=== PATIENT | male | born 1975 | race Two or more races ===

== ENCOUNTER 2024-12-14 18:39 | Inpatient (IN) | payer OTHER ==
[~2024-12-14] VITALS: Ht 167.6 cm; Wt 72.6 kg
--- NOTE | 2024-12-14 18:52 | NUR ---
PTE TRASLADADO EN AMBULANCIA INTUBADO PRESENTANDO CONVULSIONES AL MOMENTO DE SER ENCONTRADO EN UN PARKING POR PARAMEDICOS.
[2024-12-14] MEDS ORDERED: PROPOFOL 100 ML IV SCH (19:30)
[2024-12-14 19:58] LABS: BASO % 0.9 % (0.1-1.2); EOS # 0.25 (0.04-0.54); EOS % 2.3 % (0.7-7.0); LYMPH # 1.55 (1.18-3.74); LYMPH % 14.1 % (19.3-53.1); MEAN PLATELET VOLUME 9.50 fl (9.4-12.4); MONO # 0.49 (0.24-0.82); MONO % 4.5 % (4.7-12.5); NEUT # 8.51 (1.56-6.13); NEUT % 77.3 % (34.0-71.1); RED CELL DISTRIBUTION WIDTH 18.3 % (11.6-14.4)
[2024-12-14 20:30] LABS: INR 1.03
[2024-12-14 20:36] LABS: ALT/SGPT 68.0 U/L (12-78); AST/SGOT 62.0 U/L (15-37); BILIRUBIN TOTAL 0.42 mg/dL (0.3-1.2); BUN CREA RATIO 5.0 (7.0-25.0); CREATININE SERUM 1.44 mg/dL (0.70-1.30); GFR 52.36; GLOBULINA 3.6 G/DL (2.4-3.5); GLUCOSE FASTING 164.0 mg/dL (65-100); OSMOLALITY SERUM 287.0 MOSM/KG (275-295)
[2024-12-14 20:47] LABS: URINE APPEARANCE Clear; URINE BILIRRUBIN Negative (NEGATIVE); URINE BLOOD Moderate; URINE COLOR Yellow; URINE GLUCOSE Negative (NEGATIVE); URINE KETONE Negative (NEGATIVE); URINE LEUKOCYTE Negative; URINE NITRATE Negative; URINE UROBILINOGEN 0.2 E.U./dl
[2024-12-14 20:48] LABS: URINE BACTERIA 92.3 uL (0.0-1933); URINE CAST 4.54 uL (0.0-1.40); URINE EPITHELIAL CELLS 1.8 uL (0.0-38.8); URINE RBC 4.3 uL (0.0-20.8); URINE WBC 2.1 uL (0.0-23.2)
[2024-12-14 20:55] LABS: ABG PH 7.279 (7.35-7.45)
[2024-12-14 20:56] LABS: ABG PO2 242.7 mmHg (80-100); BICARBONATE 16.1 mmol/l (23-25); o2 100 %
[2024-12-14 21:31] LABS: URINE PROTEIN 100 (NEGATIVE)
[2024-12-14 21:32] LABS: URINE CRYSTALS FEW /HPF; URINE MUCUS SCANT
[2024-12-14 21:34] LABS: TYPE CELLS SQUAMOUS
--- NOTE | 2024-12-14 22:02 | NUR ---
SE RECIBE PACIENTE EN AMBULANCIA, SEDADO, INTUBADO Y CONECTADO A VENTILADOR MECANICO. CON VENOPUNCION EN BRAZO IZQ. BAJANDO UN .9 NSS. EL PARAMEDICO INDICA QUE EL PACIENTE TUBO UN EPISODIO DE CONVULSION Y SE FUE EN PARO RESPIRATORIO. SE PASA PACIENTE A UNIDAD DE CUIDADO CRITICO. SE CONECTA A MONITOR CARDIACO CON OXIMETRIA DE PULSO. SE EXTRAEN MUESTRAS DE LAB. BAJO MEDIDAS ASEPTICAS Y SE CANALIZA PACIENTE BAJO MEDIDAS ASEPTICAS, WENDI DE EDEMA Y ERITEMA. SE PROCEDE A ADMINISTRAR MEDICAMENTOS ORDENADOS POR EL DR. CARABALLO DE MANERA STAT. 6:40PM ATIVAN DE 2MG, SE RESTRINGE POR ORDEN MEDICA POR PACIENTE COMBATIVO. SE CONECTA A VENTILADOR TIMO PARAMETROS ORDENADOS. 6:45PM 8ML DE PROPOFOL. 6:[address] DUPONT EVALUA INTUBACION.
[2024-12-14] MEDS ORDERED: PROPOFOL 10,000 MCG/ML VIAL ONE (22:47)
[2024-12-14 23:01] LABS: ABG PH 7.367 (7.35-7.45); ABG PO2 174.4 mmHg (80-100); BICARBONATE 22.7 mmol/l (23-25)
[2024-12-14 23:02] LABS: o2 50 %
[2024-12-15] VITALS (7 sets, daily range): BP systolic 105–138; BP diastolic 57–79; O2SAT 100
--- NOTE | 2024-12-15 01:09 | NUR ---
SE RECIBE PTE ENTUBADO, CONECTADO A MONITOR CARDIACO Y OXIMETRIA EN CAMA #3 CON BARANDAS ELEVADAS Y PTE RESTRINGIDO. PTE CON ANGIO #20 EN LA PATENTE, WENDI DE EDEMA CON .9 NSS BAJANDO A 100ML/HR Y ANGIO #20 EN RA CON DRIP DE PROPOFOL A 20ML/HR. PTE CON VERMA #16 PATENTE. PTE SIN EDEMA EN EXTREMIDADES SUPERIORES EN INFERIORES. SE OBSERVA POR CAMBIOS.
[2024-12-15 01:53] LABS: COCAINE NEGATIVE (NEGATIVE); METHADONE NEGATIVE (NEGATIVE); OPIATES NEGATIVE (NEGATIVE); THC ( Cannabinoids) POSITIVE (NEGATIVE)
--- NOTE | 2024-12-15 10:20 | NUR ---
SE RECIBE PACIENE MASCULINO DE 49 ANOS DE EDAD EN AREA DE ICU-2 EN CAMA #3 POR RN CRESPO. PACIENTE SE ENCUENTRA INTUBADO FI02-35%, PEEP 5 Y RR14. CONECTADO A MONITOR CARDIACO CON DOS ACCESOS VENOSOS PERIFERICOS EN BRAZO IZQ PATENTES Y LIBRES DE INFECCION RECIBIENDO SEDACCION CON DIPRIVAN A 30ML/HR Y 0.9NSS A 80ML/HR. SONDA URINARIA COLOCADA Y PERMABLES SE OBSERVA ORINA EN BOLSA COLECTORA AMARILLO CON SEDIMENTACION. PACIENTE CON SIGNOS VITALES EN PA127/73mmHg, 17rpm, 87p. PACIENTE RESPONDE A ESTIMULOS. SE MANTIENE A PACIENTE EN OBSERVACION POR CAMBIOS SIGNIFICATIVOS. SE ASPIRAN SECRESIONES DE VIA AREA POR SEGURIDAD POR TERAPISTA MCKAY Y EL MISMO CAMBIO FI02 A 35%.
[2024-12-15 10:35] LABS: ABG PH 7.370 (7.35-7.45); ABG PO2 152.0 mmHg (80-100)
[2024-12-15 10:36] LABS: BICARBONATE 21.6 mmol/l (23-25); o2 40 %
[2024-12-15] MEDS ORDERED: 0.9 % SODIUM CHLORIDE 1,000 ML IV STA (13:41)
[2024-12-15] MEDS ORDERED: PANTOPRAZOLE SODIUM 40 MG in 0.9 % SODIUM CHLORIDE 8 ML IV PUSH SCH (13:49)
[2024-12-15] MEDS ORDERED: ENOXAPARIN SODIUM 40 MG/0.4 ML SYRINGE SUBCUTANEO SCH (13:49)
[2024-12-15] MEDS ORDERED: INSULIN LISPRO 1,000 UNIT/10 ML UNITS SUBCUTANEO PRN (14:00)
[2024-12-15] MEDS ORDERED: DEXTROSE 50 % IN WATER 0.5 G/ML DISP.SYRIN IV PRN (14:00)
[2024-12-15] MEDS ORDERED: RINGERS SOLUTION,LACTATED 1,000 ML IV SCH (14:00)
[2024-12-16] VITALS (21 sets, daily range): BP systolic 008–162; BP diastolic 56–88; O2SAT 98–100
[2024-12-16] MEDS ORDERED: DEXTROSE 50 % IN WATER 0.5 G/ML VIAL IV ONE (01:31)
[2024-12-16 09:29] LABS: ABG PH 7.330 (7.35-7.45); ABG PO2 119.8 mmHg (80-100); BICARBONATE 20.2 mmol/l (23-25)
[2024-12-16 09:30] LABS: o2 35 %
[2024-12-16 14:30] LABS: ABG PH 7.378 (7.35-7.45); ABG PO2 155.4 mmHg (80-100); BICARBONATE 20.4 mmol/l (23-25); o2 35 %
[2024-12-16 15:29] LABS: URINE APPEARANCE Cloudy; URINE BILIRRUBIN Negative (NEGATIVE); URINE BLOOD Moderate; URINE COLOR Yellow; URINE GLUCOSE Negative (NEGATIVE); URINE LEUKOCYTE Trace; URINE NITRATE Negative; URINE PROTEIN Trace (NEGATIVE); URINE UROBILINOGEN 1.0 E.U./dl
[2024-12-16 15:32] LABS: URINE BACTERIA 13.1 uL (0.0-1933); URINE EPITHELIAL CELLS 14.9 uL (0.0-38.8); URINE RBC 416.2 uL (0.0-20.8); URINE WBC 11.5 uL (0.0-23.2)
[2024-12-16 16:04] LABS: ALT/SGPT 50.0 U/L (12-78); AST/SGOT 52.0 U/L (15-37); BILIRUBIN TOTAL 0.34 mg/dL (0.3-1.2); BUN CREA RATIO 3.0 (7.0-25.0); CREATININE SERUM 0.7 mg/dL (0.70-1.30); GFR 120.36; GLOBULINA 3.4 G/DL (2.4-3.5); GLUCOSE FASTING 80.0 mg/dL (65-100); OSMOLALITY SERUM 288.0 MOSM/KG (275-295)
[2024-12-16 17:41] LABS: URINE CAST 0.73 uL (0.0-1.40); URINE CRYSTALS MANY /HPF; URINE KETONE 80 (NEGATIVE)
[2024-12-17] VITALS (12 sets, daily range): BP systolic 118–170; BP diastolic 62–87; O2SAT 98–100
[2024-12-17 09:07] LABS: ALT/SGPT 51.0 U/L (12-78); AST/SGOT 48.0 U/L (15-37); BILIRUBIN TOTAL 0.45 mg/dL (0.3-1.2); BUN CREA RATIO 3.0 (7.0-25.0); CREATININE SERUM 0.86 mg/dL (0.70-1.30); GFR 94.91; GLOBULINA 3.8 G/DL (2.4-3.5); GLUCOSE FASTING 126.0 mg/dL (65-100); OSMOLALITY SERUM 289.0 MOSM/KG (275-295)
[2024-12-17 10:15] LABS: ABG PH 7.370 (7.35-7.45); ABG PO2 123.0 mmHg (80-100)
[2024-12-17 10:16] LABS: BICARBONATE 20.3 mmol/l (23-25); o2 35 %
[2024-12-17] MEDS ORDERED: ENALAPRILAT DIHYDRATE 1.25 MG/ML VIAL IV SCH (12:00)
[2024-12-17] MEDS ORDERED: LORazepam 2 MG/ML VIAL IV PUSH NR (12:30)
[2024-12-17] MEDS ORDERED: LORazepam 2 MG/ML VIAL IV PUSH PRN (15:15)
[2024-12-17 18:11] LABS: ABG PH 7.371 (7.35-7.45); ABG PO2 119.6 mmHg (80-100); BICARBONATE 18.7 mmol/l (23-25)
[2024-12-17 23:34] LABS: o2 35 %
[2024-12-18] VITALS (7 sets, daily range): BP systolic 123–156; BP diastolic 68–97; O2SAT 98–100
[2024-12-18] MEDS ORDERED: QUETIAPINE FUMARATE 25 MG TABLET PO SCH ×2 (09:45→13:00)
[2024-12-18 11:10] LABS: BASO % 1.2 % (0.1-1.2); EOS # 0.19 (0.04-0.54); EOS % 2.3 % (0.7-7.0); LYMPH # 1.22 (1.18-3.74); LYMPH % 14.8 % (19.3-53.1); MEAN PLATELET VOLUME 9.30 fl (9.4-12.4); MONO # 0.95 (0.24-0.82); MONO % 11.5 % (4.7-12.5); NEUT # 5.78 (1.56-6.13); NEUT % 70.0 % (34.0-71.1); RED CELL DISTRIBUTION WIDTH 18.6 % (11.6-14.4)
[2024-12-18 11:46] LABS: BUN CREA RATIO 4.0 (7.0-25.0); CREATININE SERUM 0.75 mg/dL (0.70-1.30); GFR 111.15; GLUCOSE FASTING 76.0 mg/dL (65-100); OSMOLALITY SERUM 291.0 MOSM/KG (275-295)
[2024-12-19 04:42] VITALS: BP 136/74; O2SAT 100
[2024-12-19 07:26] VITALS: BP 135/5; O2SAT 97
[2024-12-19 11:56] VITALS: BP 138/92; O2SAT 97
[2024-12-19] MEDS ORDERED: SODIUM CHLORIDE 0.45 % 1,000 ML IV SCH ×2 (13:15→14:45)
[2024-12-19] MEDS ORDERED: INSULIN LISPRO 1,000 UNIT/10 ML UNITS SUBCUTANEO PRN (14:45)
[2024-12-19] MEDS ORDERED: DEXTROSE 50 % IN WATER 0.5 G/ML VIAL IV PRN (14:45)
[2024-12-19] MEDS ORDERED: LORazepam 2 MG/ML VIAL IV PUSH PRN (14:45)
[2024-12-19 15:46] VITALS: BP 152/94; O2SAT 97
[2024-12-19] MEDS ORDERED: QUETIAPINE FUMARATE 25 MG TABLET PO SCH (17:00)
[2024-12-19] MEDS ORDERED: ENALAPRILAT DIHYDRATE 1.25 MG/ML VIAL IV SCH (18:00)
[2024-12-19 20:01] VITALS: BP 152/87; O2SAT 100
[2024-12-19 23:22] VITALS: BP 140/96; O2SAT 99
[2024-12-20 07:04] VITALS: BP 143/76; O2SAT 97
[2024-12-20] MEDS ORDERED: ENOXAPARIN SODIUM 40 MG/0.4 ML SYRINGE SUBCUTANEO SCH (09:00)
[2024-12-20] MEDS ORDERED: PANTOPRAZOLE SODIUM 40 MG in 0.9 % SODIUM CHLORIDE 8 ML IV PUSH SCH (09:00)
[2024-12-20 12:00] VITALS: BP 126/76; O2SAT 97
[2024-12-20 15:42] VITALS: BP 131/81; O2SAT 97
== END 2024-12-20 17:43 | disposition home or self-care (01) | DRG 100 ==
LOC: ER 18:39 → ICU 12-15 13:43 → ICU-2 12-15 13:43 → ICU 12-17 11:59
PROVIDERS: General Practice; Internal Medicine Critical Care Medicine; ADMIT Student in an Organized Health Care Education/Training Program; ATTEND Student in an Organized Health Care Education/Training Program
PROC: B020ZZZ Computerized Tomography (CT Scan) of Brain (ICD-10-PCS; principal; 2024-12-14)
PROC: BR20ZZZ Computerized Tomography (CT Scan) of Cervical Spine (ICD-10-PCS; 2024-12-14)
PROC: BB24ZZZ Computerized Tomography (CT Scan) of Bilateral Lungs (ICD-10-PCS; 2024-12-14)
PROC: 4A12X4Z Monitoring of Cardiac Electrical Activity, External Approach (ICD-10-PCS; 2024-12-15)
PROC: 0BP1XDZ Removal of Intraluminal Device from Trachea, External Approach (ICD-10-PCS; 2024-12-17)
DX: G40.901 Epilepsy, unspecified, not intractable, with status epilepticus (principal); J96.00 Acute respiratory failure, unspecified whether with hypoxia or hypercapnia; J98.11 Atelectasis; E87.21 Acute metabolic acidosis; N17.9 Acute kidney failure, unspecified; G93.89 Other specified disorders of brain; F12.90 Cannabis use, unspecified, uncomplicated; N18.9 Chronic kidney disease, unspecified; R45.1 Restlessness and agitation; I10 Essential (primary) hypertension